=== PATIENT | female | born 1965 | race Caucasian/White ===

== ENCOUNTER 2017-01-07 19:41 | Emergency (ER) | payer OTHER ==
[~2017-01-07] VITALS: Ht 170.2 cm; Wt 77.1 kg
--- NOTE | 2017-01-07 20:14 | ED NECK/BACK PAIN COMPLAINT ---
History of Present Illness General Chief Complaint: Low Back Pain/Injury Stated Complaint: BIBA BACK PAIN Source: patient Exam Limitations: no limitations Vital Signs & Intake/Output Vital Signs & Intake/Output Vital Signs Date Time Temp Pulse Resp B/P Pulse O2 O2 Flow FiO2 Ox Delivery Rate 01/07 2353 98.2 76 18 103/59 97 Room Air 01/078 96.4 78 18 122/64 98 Room Air 01/07 2005 Room Air 01/07 1953 96.8 67 18 148/72 97 Room Air ED Intake and Output 01/08 0000 01/07 1200 Intake Total 0 Output Total 800 Balance -800 Intake, Oral 0 Output, Urine 800 Patient 170 lb Weight Allergies Coded Allergies: Penicillins (01/07/17) Sulfa (Sulfonamide Antibiotics) (01/07/17) Reconcile Medications Cyclobenzaprine HCl 5 MG TABLET 1 TAB PO TIDPRN PRN MUSCLE RELAXATION Naproxen (Naprosyn) 500 MG TABLET 1 TAB PO BID PRN PAIN AND INFLAMMATION Triage Note: PT BIBA FROM HOME. PER EMS, PT HAS BEEN EXPERIENCING BACK PAIN X 1 DAY. TODAY, PT WAS BENDING OVER TO GRAB HER PURSE AND FELT HER BACK "LOCK UP". PT STATES THAT PAIN ORIGINATES IN BACK AND RADIATES DOWN RIGHT LEG. IN ROUTE TO ED, 18G ESTABLISHED IN L AC VIA EMS. EMS ALSO ADMINISTERED [employer] IN ROUTE. UPON ED ARRIVAL PT ALERT AND ORIENTED, PAIN IS NOW 5/10 AND PT HAS PILLOW UNDER RIGHT BUTTOCK TO RELIEVE PRRESSURE. PT STATES HX OF SCIATIC PAIN. Triage Nurses Notes Reviewed? yes HPI: This patient is a 51-year-old female with past medical history including sciatica who presented to the emergency department today brought in by ambulance for evaluation of lower back pain. The patient reported that yesterday she was feeling, "some sciatic pain." Tonight she was bending down to pick her purse up out of her car and her back locked up areas she reported the pain is a 10 out of 10 and radiates down to her right ankle. The pain is constant with no palliative factors. Movement makes the pain worse. She reported some tingling in her foot. No numbness. The patient denied any urinary burning, urgency, frequency, blood in the urine, bowel or bladder incontinence, felt her seizure, abdominal pain, nausea, vomiting, constipation, diarrhea, fevers, chills, chest pain, or difficulty breathing. (DUONG TREJO PA-C) Past History Travel History Traveled to [place] past 21 day No Medical History Any Pertinent Medical History? see below for history Musculoskeletal: sciatica Surgical History Surgical History: non-contributory Family History Hx Contributory? No (DUONG TREJO PA-C) Review of Systems Review of Systems Constitutional: Reports: no symptoms. Eyes: Reports: no symptoms. Ears, Nose, Throat, Mouth: Reports: no symptoms. Respiratory: Reports: no symptoms. Cardiovascular: Reports: no symptoms. Gastrointestinal/Abdominal: Reports: no symptoms. Musculoskeletal: Reports: see HPI. Skin: Reports: no symptoms. Neurological/Psychological: Reports: see HPI. All Other Systems: Reviewed and Negative (DUONG TREJO PA-C) Physical Exam Physical Exam Neck: normal inspection, supple, full range of motion, normal alignment Comments: Well-developed well-nourished person in moderate distress HEENT: Normal EENT exam, head normocephalic, moist mucous membranes Pupils equally round and reactive to light. Nose is atraumatic. Neck: Supple. No midline tenderness Back: Normal inspection. No midline tenderness. Right sided lumbar paraspinal musculature tenderness to palpation with muscular spasm noted. Positive straight leg raise on the right at 30 Cardiovascular: Regular rate and rhythm with no murmurs Respiratory: No respiratory distress. Speaking in full sentences Abdomen: Soft, nontender and nondistended Extremity: Normal and equal pulses. 5 out of 5 muscular strength in all extremities Neuro: Alert oriented x3, cranial nerves II through XII grossly intact. Skin: No appreciable rash on exposed skin, skin is warm and dry. Psych: Mood and affect is normal (DUONG TREJO PA-C) Progress Differential Diagnosis: cauda equina syn, herniated disc, myofascial strain, pyelo/UTI, sciatica, spinal cord inj, thoracic outlet syn, T/L spine injury, ureterolithiasis Plan of Care: Orders Procedure Date/time Status CT LUMB SPINE WO IV CONTRAST 01/07 1947 Active Diagnostic Imaging: Viewed by Me: CT Scan. Discussed w/RAD: CT Scan. Radiology Impression: PATIENT: XIANG ESTEVEZ PRESENT AGE: 51 PATIENT ACCOUNT NO: [id number] : 66 LOCATION: [facility] ORDERING PHYSICIAN: DUONG TREJO PA-C SERVICE DATE: 01/07/17 EXAM TYPE: CAT - CT LUMB SPINE WO IV CONTRAST EXAMINATION: CT LUMBAR SPINE WITHOUT CONTRAST CLINICAL INFORMATION: Back pain. COMPARISON: None TECHNIQUE: Noncontrast axial images obtained through lumbar spine. Coronal and sagittal reformatted images are performed at the CT scanner. DLP: 509.53 mGy-cm FINDINGS: Lumbar vertebrae have normal height and normal alignment. No fracture or bone destruction. No spondylolysis or spondylolisthesis. There is minimal degenerative lipping at the anterior vertebral endplates of L2-L5. Lumbar disc heights are normal. No central canal stenosis. No focal disc protrusion. Neural foramina are open throughout lumbar spine. Facet joints are normal. Sacroiliac joints are normal. No paraspinal soft tissue abnormality. The visualized portion of kidneys are normal. Partial visualization of a hypodensity in the left lobe of liver, possibly hepatic cyst measuring 2.5 cm. This can be further assessed with ultrasound. Moderate to large-volume of stool in the visualized colonic bowel loops. SPINAL LEVELS: T12-L1: Normal. L1-L2: Normal. L2-L3: Normal. L3-L4: Normal. L4-L5: Normal. L5-S1: Normal. IMPRESSION: 1. Minimal degenerative lipping at the anterior endplates of L2-L5 vertebrae. CT lumbar spine otherwise normal. No central canal stenosis. No focal disc protrusion. MRI lumbar spine may be helpful for further evaluation. 2. Hypodense lesion in the liver partially visualized, possibly hepatic cyst. This can be further assessed with ultrasound. DICTATED BY: KRIS HIGGINS MD DATE/TIME DICTATED:01/08/1725 BUSINESS OFFICE ASSOCIATE:KEVON DATE/TIME TRANSCRIBED:01/08/1725 CONFIDENTIAL, DO NOT COPY WITHOUT APPROPRIATE AUTHORIZATION. <Electronically signed in Other Vendor System> SIGNED BY: KRIS HIGGINS MD 01/08/17 0038 Comments: 01/07/2017 8:47:24 PM: I was at the patient's bedside for reevaluation. She reported that the naproxen and Valium did not help her pain. She is refusing to go to CT scan without more medication as she reported that she is unable to stand up to move from the stretcher to the CT scan table. (NEIL GARCIA,DUONG) Departure Departure Disposition: HOME OR SELF CARE Condition: Stable Clinical Impression Primary Impression: Sciatica Qualifiers: Laterality: right Qualified Code: M54.31 - Sciatica, right side Referrals: PATIENT HAS NO PRIMARY CARE DR (PCP/Family) DAYSI HUYNH,DOMINIC Michaels Additional Instructions: TAKE FLEXARIL PRESCRIBED FOR MUSCLE RELAXATION. TAKE NAPROXEN PRESCRIBED FOR PAIN AND INFLAMMATION. REST AND GENTLE STRETCHING. NO HEAVY LIFTING OR STRENUOUS ACTIVITY. FOLLOW-UP WITH THE ORTHOPEDIC PHYSICIAN WHOSE INFORMATION HAS BEEN PROVIDED TO YOU. RETURN FOR WORSENING SYMPTOMS OR CONCERNS. Departure Forms: Customer Survey General Discharge Information Prescriptions: Current Visit Scripts Cyclobenzaprine HCl 1 TAB PO TIDPRN PRN MUSCLE RELAXATION #12 TAB Naproxen (Naprosyn) 1 TAB PO BID PRN PAIN AND INFLAMMATION #20 TAB (DUONG TREJO PA-C) PA/MANAGER DOMESTIC Co-Sign Statement Statement: ED Attending supervision documentation- [] I saw and evaluated the patient. I have also reviewed all the pertinent lab results and diagnostic results. I agree with the findings and the plan of care as documented in the PA's/MANAGER DOMESTIC's documentation. [x] I have reviewed the ED Record and agree with the PA's/MANAGER DOMESTIC's documentation. [] Additions or exceptions (if any) to the PAs/MANAGER DOMESTIC's note and plan are summarized below: [] (RA HUYNH,ELANA Michaels)
[2017-01-07 23:53] VITALS: BP 103/59
[2017-01-08] MEDS ORDERED: NAPROSYN500 M1 PO ×2 (00:27→01:03)
[2017-01-08] MEDS ORDERED: CYCLOBENZAPRINE5 M2 PO ×2 (00:27→01:03)
--- NOTE | 2017-01-08 00:38 | CT SCAN REPORT ---
EXAMINATION: CT LUMBAR SPINE WITHOUT CONTRAST CLINICAL INFORMATION: Back pain. COMPARISON: None TECHNIQUE: Noncontrast axial images obtained through lumbar spine. Coronal and sagittal reformatted images are performed at the CT scanner. DLP: 509.53 mGy-cm FINDINGS: Lumbar vertebrae have normal height and normal alignment. No fracture or bone destruction. No spondylolysis or spondylolisthesis. There is minimal degenerative lipping at the anterior vertebral endplates of L2-L5. Lumbar disc heights are normal. No central canal stenosis. No focal disc protrusion. Neural foramina are open throughout lumbar spine. Facet joints are normal. Sacroiliac joints are normal. No paraspinal soft tissue abnormality. The visualized portion of kidneys are normal. Partial visualization of a hypodensity in the left lobe of liver, possibly hepatic cyst measuring 2.5 cm. This can be further assessed with ultrasound. Moderate to large-volume of stool in the visualized colonic bowel loops. SPINAL LEVELS: T12-L1: Normal. L1-L2: Normal. L2-L3: Normal. L3-L4: Normal. L4-L5: Normal. L5-S1: Normal. IMPRESSION: 1. Minimal degenerative lipping at the anterior endplates of L2-L5 vertebrae. CT lumbar spine otherwise normal. No central canal stenosis. No focal disc protrusion. MRI lumbar spine may be helpful for further evaluation. 2. Hypodense lesion in the liver partially visualized, possibly hepatic cyst. This can be further assessed with ultrasound.
== END 2017-01-08 01:17 ==
LOC: ERH 19:41
DX: M54.41 Lumbago with sciatica, right side (principal)
CPT/HCPCS: 96374; J3360